=== PATIENT | female | born 1995 | race Caucasian/White ===

== ENCOUNTER 2018-06-02 10:43 | Emergency (ER) | payer SELFPAY ==
[~2018-06-02] VITALS: Ht 121.9 cm; Wt 39.9 kg
[2018-06-02 10:48] VITALS: BP 103/74
--- NOTE | 2018-06-02 11:37 | NUR ---
Patient discharged to home in stable condition. Written and verbal after care instructions given. Patient verbalizes understanding of instruction.
== END 2018-06-02 11:40 | disposition home or self-care (01) ==
LOC: ER 10:48
DX: J06.9 Acute upper respiratory infection, unspecified (principal)